=== PATIENT | female | born 1935 | race Caucasian/White ===

== ENCOUNTER 2017-11-03 20:15 | Inpatient (IN) ==
[2017-11-03] MEDS ORDERED: traZODone HCL 50 MG TABLET PO PRN (22:14)
[2017-11-03] MEDS ORDERED: DEXTROSE 31 GM ORAL.SUSP PO PRN (22:14)
[2017-11-03] MEDS ORDERED: ONDANSETRON 4 MG/2 ML VIAL IV PRN (22:14)
[2017-11-03] MEDS ORDERED: ACETAMINOPHEN 325 MG TABLET PO PRN (22:14)
[2017-11-03] MEDS ORDERED: HYDROcodone/APAP 5/325MG TABLET PO PRN (22:14)
[2017-11-03] MEDS ORDERED: DEXTROSE 50% 50 ML VIAL IV PRN (22:14)
[2017-11-03] MEDS: 0.9 % SODIUM CHLORIDE 1,000 ML IV SCH (23:00)
--- NOTE | 2017-11-03 23:19 | Internal Med History&Physical ---
Medical - H&P: HPI Patient information: Note initiated : 11/03/17 at 11:04 pm Service Date, if different from initiated Date: [] Patient: Sharon Lucsa 82 y/o F admitted on 11/03/17 for Femur Fracture . Chief Complaint: fall, femur fracture History of present illness: The patient is an 82-year-old female history of type 2 diabetes, hypertension, aortic stenosis who presents in transfer from an outside hospital with a femur fracture. The history is obtained in speaking with the patient as well as reviewing old records from the transferring hospital as well as from [facility] in [place], as summarized below. Patient has a history of a left total knee arthroplasty done in 2001. She's also had a previously done right total knee arthroplasty several years prior. She done well postop, not have problems with her left knee. This morning the patient got up and started her day, she was walking with her 4 wheeled walker which she usually uses to ambulate at home. She notices she is having trouble getting her left leg to move correctly and it felt numb. She wondered if she might of had a stroke. However she continued to walk on the M with a walker. She showered, and continued her day. This afternoon, while walking around the edge of the bed as she was manipulating the corner, her left leg went move and then she fell to the floor. She has not recall particularly twisting the limb. She's had no antecedent falls recently. She was unable to move the limb and to get up. Her called EMS and she was taken to [facility] in [place]. There she was found to have a distal left femur fracture above her left total knee implant. She is transferred to this facility for orthopedic consultation. Patient had been feeling well otherwise. She does not have a history of dyspnea on exertion or chest symptoms when ambulating at her usual pace, though she does not walk briskly and does use her walker for stability issues. She does not have claudication symptoms. She has no history of congestive heart failure which she is aware nor history of lung disease. As undergone anesthesia for several surgeries in the past, has not had problems with anesthesia except takes her a long time to have the effects of anesthesia were off. Review of records from [facility] showed that she had presented with a non- STEMI, which time she was found to have severe aortic stenosis (she tells me this was June 2017, initially presenting to [facility] in [place]). She also had a focal lesion in the mid right (later characterized as severe and a cardiology consult note) and moderate bifurcation disease of the LAD. She has been evaluated for transcatheter aortic valve replacement and RCA stenting. In reviewing those records, she is noted to be quite frail, to greater than 6 seconds to complete a 5 m walk and is felt she was more symptomatic than she was on during the interview. The patient recalls the visits to [place] and [facility]. She describes being evaluated for surgery and valve replacement, subsequently having recommendation for having the valve replaced about doing surgery (TAVR) and stenting. She then stated that after much thought she decided it was too much trouble and did not wish to have those procedures done. Review of records from [facility] also showed diagnosis of chronic diastolic heart failure in August 2017 (the patient denied have a problem with "fluid rolling up on the lungs" or having been told she had congestive heart failure). Echocardiogram on 08/21/2017 showed ejection fraction of 55% with severe AAS. She also had mild-moderate mitral regurgitation. She currently denies any chest pain/tightness/squeezing. She denies any dyspnea. No lower extremity edema. No fever, chills, headache, sore throat, dyspnea, cough, sputum production, nausea, vomiting, hematemesis, blood in stool , diarrhea, dysuria, focal neurologic symptoms. Medical - H&P: PMH Medical history: Coronary artery disease, status post in STEMI (June 2017 per history) Cardiac cath July 2017 with 99% mid RCA, 70-80% mid LAD and 80-90% diagonal vessel disease Chronic diastolic/valvular heart failure Echocardiogram 08/21/2017 with EF 55%, grade 2 diastolic dysfunction, severe , mild-mod MR Severe aortic stenosis Type 2 diabetes mellitus Hypertension Hyperlipidemia Breast cancer, status post right mastectomy in 1996. Recurrent breast cancer, status post left mastectomy in 2013 Left bundle branch block Reticulocyte is Mild hyponatremia Low back pain Allergic rhinitis Fall with left proximal humerus fracture 2013, treated nonoperatively Surgical history: Status post right total knee arthroplasty 1999 Status post left total knee arthroplasty 2003 Status post right mastectomy 1996, left mastectomy 2013 Status post hysterectomy 1985 Back surgery 1995 Pertinent family history: Patient's mother had diabetes, dementia, breast cancer. Father had colon cancer and stroke. Social history: Patient lives with her who is 91 years of age, provides ADLs for both of them. She stopped smoking in 1973. She does not drink alcohol. Medical - H&P: Meds Home Medications Medication Instructions Recorded Confirmed Type Aspirin [Lauren Chewable Aspirin] 81 mg PO QAM 11/03/17 11/03/17 History Bisoprolol Fumarate 10 mg PO QAM 11/03/17 11/03/17 History Furosemide [Lasix] 40 mg PO QAM 11/03/17 11/03/17 History Insulin Aspart [Novolog Flexpen] 100 unit SQ PRN PRN 11/03/17 11/03/17 History Insulin Detemir [Levemir Flextouch] 100 unit SQ PRN PRN 11/03/17 11/03/17 History Lisinopril [Zestril] 20 mg PO QAM 11/03/17 11/03/17 History Potassium Chloride [Klor-Con 10] 10 meq PO BID 11/03/17 11/03/17 History Rosuvastatin Calcium [Crestor] 40 mg PO DAILY 11/03/17 11/03/17 History Vit B12/Intrinsic Fact/Folate 1 each PO QAM 11/03/17 11/03/17 History [Intrinsi [id number] Tablet] Vitamin D3 400 unit PO QAM 11/03/17 11/03/17 History amLODIPine BESYLATE [Amlodipine 5 mg PO QAM 11/03/17 11/03/17 History Besylate] metFORMIN HCL [Glucophage] 500 mg PO BID 11/03/17 11/03/17 History Allergies Allergy/AdvReac Type Severity Reaction Status Date / Time bimatoprost [From Lumigan] Allergy Unknown Verified 11/03/17 21:41 methocarbamol [From Robaxin] Allergy Hives Verified 11/03/17 21:41 Penicillins Allergy Hives Verified 11/03/17 21:41 Warfarin [From Coumadin] Allergy Itching Verified 11/03/17 21:47 atorvastatin [From Lipitor] AdvReac Redness of Verified 11/03/17 21:41 Skin hydrochlorothiazide AdvReac Muscle Pain Verified 11/03/17 21:41 [From Maxzide] Sulfa (Sulfonamide AdvReac Vomiting Verified 11/03/17 21:41 Antibiotics) Triamterene [From Maxzide] AdvReac Muscle Pain Verified 11/03/17 21:41 Medical - H&P: Exam - Constitutional Exam: GENERAL: Alert, oriented, in no acute distress. Cooperative, appears stated age. HEENT: Atraumatic. PERRL, conjunctiva clear, no scleral icterus. Hearing grossly intact. Oropharynx with moist mucous membranes, no lip or gum lesions, no pharyngeal erythema or exudate. Tongue midline, palate rises symmetrically. NECK: Supple without meningismus, no thyromegaly RESPIRATORY: Breath sounds clear bilaterally without wheezes or rhonchi. Respiratory effort is unlabored. CARDIOVASCULAR: Regular rate and rhythm, 3/6 systolic murmur RUSB, radiates into the carotids bilaterally. 3/6 systolic murmur at the apex. Carotid pulses 1+, no delay upstrokes. JVP is not elevated. No peripheral edema in the right, trace on the left (leg with fracture). GI: Abdomen soft, nontender, no guarding or rebound. Bowel sounds are present. No hepatosplenomegaly. LYMPHATIC: No cervical or supraclavicular lymphadenopathy MUSCULOSKELETAL: Left lower extremity is externally rotated, supported on a low. His tenderness over the medial distal thigh, no ecchymoses. Some edema of the distal thigh. Well-healed surgical scar over both knees. Muscle mass decreased. Strength 5-/5 in the upper and lower extremities. SKIN: Intact, warm, dry. Skin turgor decreased. NEUROLOGIC: Cranial nerves II through XII grossly intact. Sensation intact to light touch bilaterally. PSYCHIATRIC: Alert, oriented x3, normal affect, fairly good insight into condition. Medical - H&P: Reslt - Labs Labs: From [facility]: White count 14.0, hemoglobin 13.3, platelet count 279,000 with 65% neutrophils and 12% lymphocytes on differential. Sodium 134, potassium 3.5, chloride 94, bicarbonate 29, B1 21, creatinine 0.6, glucose 97. Urinalysis shows negative nitrites negative leukocyte esterase. - Impressions Left knee films from outside facility reviewed Displaced distal femur fracture with angulation just above the femoral portion of total knee hardware. Medical - H&P: A/P (1) Femur fracture, left Current visit: Yes Status: Acute (2) Severe aortic stenosis Current visit: Yes Status: Chronic (3) Coronary artery disease Current visit: Yes Status: Chronic (4) Chronic diastolic (congestive) heart failure Current visit: Yes Status: Chronic (5) Type 2 diabetes mellitus Current visit: Yes Status: Chronic (6) Hypertension Current visit: Yes Status: Chronic - Narrative A/P Narrative: 82-year-old female presenting after left leg symptoms and subsequent fall with distal femur fracture. Distal femur fracture. Occurring above the femoral component of her left total knee arthroplasty. Patient was accepted in transfer by Dr. Pavon, either here or one of his partners will see the patient for surgical repair. There does not appear to be antecedent trauma, concerning for possible pathologic fracture due to malignancy with her history of breast cancers. Patient has significant past medical history with severe aortic stenosis and severe coronary stenoses. She's had risk stratification with coronary angiography in July of this year with 99% mid RCA and 70-80% mid LAD lesions. She denies to me a history of chest pain or tightness with her normal activity, though she is not very active at all. In August, as noted she was having dyspnea and some chest symptoms for the past year. She apparently presented at [facility] with a non-STEMI in June 2017. She was evaluated for TAVR as well as coronary stenting but decided not to follow through. Patient would be high risk for surgery. The geriatrics sensitive perioperative risk calculator gives a risk of 2.4% for perioperative AR or cardiac arrest. However given the fairly emergent need for surgery, there really isn't the opportunity for coronary intervention (which would require antiplatelet therapy for several months) prior to going to the OR. Plan: If the patient does proceed to surgery, will need close attention to avoid drastic afterload reduction, and troponin should be trended postoperatively. Coronary artery disease. Both RCA and LAD lesions as noted above, also a diagonal lesion. Denies any current chest symptoms over the last few weeks with her usual exertional status. Plan: For now continue with her medical regimen, including beta alesia and high potency statin. Severe aortic stenosis. Plan: Will need close monitoring to avoid afterload reduction. Chronic diastolic congestive heart failure due to valvular heart disease. We' ll be at risk for pulmonary edema with aggressive fluids. Plan: Judicious fluids, close monitoring. Type 2 diabetes on insulin as well as metformin. Plan: Controlled carbohydrate diet, sliding scale insulin, lower dose Levemir, metformin. Prophylaxis: SCDs CODE STATUS: Patient wishes full code.
[2017-11-04] MEDS: 0.9 % SODIUM CHLORIDE 10 ML SYRINGE IV SCH ×3 (05:32→22:32)
[2017-11-04 06:08] LABS: Mean Cell Volume 87.9 fL (80.0-100.0); Mean Corpuscular HGB Conc 33.3 g/dL (31.0-36.0); Mean Corpuscular Hemoglobin 29.3 pg (26.0-34.0); Platelet Count 212 K/mcL (140-440); RBC 3.42 M/mcL (4.00-5.20)
[2017-11-04 06:21] LABS: ALT/SGPT 13 U/l (0-40); Albumin 3.3 gm/dL (3.2-5.2); Albumin/Globulin Ratio 1.6 (1.0-2.3); Alkaline Phosphatase 42 U/L (39-117); Blood Urea Nitrogen 14 mg/dl (8-23)
[2017-11-04] MEDS: INSULIN LISPRO 1 UNIT/0.01 ML UNIT SQ SCH ×4 (07:11→22:32)
[2017-11-04 07:21] LABS: Estimated Average Glucose(eAG) 146 mg/dL; Hemoglobin A1C 6.7 % HGB (4.0-6.0)
[2017-11-04] MEDS ORDERED: PANTOPRAZOLE 40 MG VIAL IV SCH (07:30)
[2017-11-04 08:29] LABS: Eosinophils % (Manual) 2 % (0-7); Lymphocytes % 24 % (15-49); Monocytes % (Manual) 4 % (1-12); Platelet Estimate NORMAL (NORMAL); RBC Morphology NORMAL (NORMAL); Segmented Neutrophils % 70 % (38-78)
[2017-11-04] MEDS ORDERED: FAMOTIDINE/PF 20 MG/2 ML VIAL IV SCH (09:00)
[2017-11-04] MEDS ORDERED: 0.9 % SODIUM CHLORIDE 250 ML IV SCH (10:15)
--- NOTE | 2017-11-04 10:15 | Internal Med Progress Note ---
Medical - PN: Subj Patient information: Note initiated : 11/04/17 at 10:12 am Service Date, if different from initiated Date: [] Patient: Sharon Lucas 82 y/o F admitted on 11/03/17 for Femur Fracture . Chief Complaint: [] Interval history: 11/03 The patient is an 82-year-old female history of type 2 diabetes, hypertension, aortic stenosis who presents in transfer from an outside hospital with a femur fracture. The history is obtained in speaking with the patient as well as reviewing old records from the transferring hospital as well as from [facility] in [place], as summarized below. Patient has a history of a left total knee arthroplasty done in 2001. She's also had a previously done right total knee arthroplasty several years prior. She done well postop, not have problems with her left knee. This morning the patient got up and started her day, she was walking with her 4 wheeled walker which she usually uses to ambulate at home. She notices she is having trouble getting her left leg to move correctly and it felt numb. She wondered if she might of had a stroke. However she continued to walk on the M with a walker. She showered, and continued her day. This afternoon, while walking around the edge of the bed as she was manipulating the corner, her left leg went move and then she fell to the floor. She has not recall particularly twisting the limb. She's had no antecedent falls recently. She was unable to move the limb and to get up. Her called EMS and she was taken to [facility] in [place]. There she was found to have a distal left femur fracture above her left total knee implant. She is transferred to this facility for orthopedic consultation. Patient had been feeling well otherwise. She does not have a history of dyspnea on exertion or chest symptoms when ambulating at her usual pace, though she does not walk briskly and does use her walker for stability issues. She does not have claudication symptoms. She has no history of congestive heart failure which she is aware nor history of lung disease. As undergone anesthesia for several surgeries in the past, has not had problems with anesthesia except takes her a long time to have the effects of anesthesia were off. Review of records from [facility] showed that she had presented with a non- STEMI, which time she was found to have severe aortic stenosis (she tells me this was June 2017, initially presenting to [facility] in [place]). She also had a focal lesion in the mid right (later characterized as severe and a cardiology consult note) and moderate bifurcation disease of the LAD. She has been evaluated for transcatheter aortic valve replacement and RCA stenting. In reviewing those records, she is noted to be quite frail, to greater than 6 seconds to complete a 5 m walk and is felt she was more symptomatic than she was on during the interview. The patient recalls the visits to [place] and [facility]. She describes being evaluated for surgery and valve replacement, subsequently having recommendation for having the valve replaced about doing surgery (TAVR) and stenting. She then stated that after much thought she decided it was too much trouble and did not wish to have those procedures done. Review of records from [facility] also showed diagnosis of chronic diastolic heart failure in August 2017 (the patient denied have a problem with "fluid rolling up on the lungs" or having been told she had congestive heart failure). Echocardiogram on 08/21/2017 showed ejection fraction of 55% with severe AAS. She also had mild-moderate mitral regurgitation. 11/04 Patient seen and examined. She initially did not want to sign blood consent last evening. Had long discussion with the patient, her granddaughter is also in the room. She did not want to receive blood due to sikhism reasons, though after further discussion of the risks of proceeding to surgery with significant anemia given her right coronary and LAD stenoses, she has consented to receive blood. In discussing with Dr. Almanzar, he estimates one unit of blood has been lost in tissues due to fracture, and one further unit of blood may be lost during surgery. We discussed with the patient nonoperative management which would be 6-8 weeks and knee immobilizer without weightbearing. She does wish to proceed with surgery. Both she and her granddaughter recognize she is at higher risk given her coronary artery disease and aortic stenosis. Did not sleep well last night. No dyspnea. No chest pain. Pain in the leg is controlled. - Constitutional Vitals: Vital Signs Temp Pulse Resp BP Pulse Ox 98.6 F 63 16 132/61 95 11/04/17 06:56 11/04/17 03:10 11/04/17 06:56 11/04/17 06:56 11/04/17 06:56 Period Temp Pulse Resp BP Sys/Aviles Pulse Ox Last 24 Hr 98.0 F-98.8 F 58-63 12-16 130-141/58-68 94-95 Intake and Output 11/03/17 11/04/17 11/04/17 21:59 05:59 13:59 Output Total 475 / 475 Balance -475 / -475 Weight 163 lb Intake & Output: Intake & Output 11/03/17 11/04/17 11/04/17 21:59 05:59 13:59 Output Total 475 / 475 Balance -475 / -475 Weight 163 lb Output: Urine Catheter Amount 475 / 475 Exam: General: Laying in bed, in no distress Chest: Clear, no rales Cardiovascular: Regular with 3/6 systolic murmur is unchanged Abdomen: Soft, nontender Musculoskeletal: Left lower extremity is neurovascularly intact Neuro: Awake, alert, oriented to person, place, situation Medical - PN: Obj Da - Labs CBC & Chem 7: 11/04/17 04:42 11/04/17 04:42 Labs: Abnormal Lab Results 11/04/17 11/04/17 04:42 04:42 WBC 11.1 H RBC 3.42 L Hgb 10.0 L Hct 30.1 L RDW 15.0 H Anion Gap 6.0 L Creatinine 0.5 L Glucose 150 H Hemoglobin A1c 6.7 H Calcium 8.5 L Total Protein 5.4 L Globulin 2.1 L Meds: Medications Acetaminophen (Tylenol) 650 mg PO Q6HP PRN PRN Reason: PAIN/FEVER > 101 Hydrocodone Bitart/Acetaminophen (Kevil 5/325mg) 1 tab PO Q4HP PRN PRN Reason: PAIN LEVEL 3-6 Dextrose (Dextrose 50%) 0 ml IV UD PRN PRN Reason: Hypoglycemia Diagnostic Test (Pha) (Accu-Chek) 1 each FS ACHS KEIKO Last Admin: 11/04/17 07:10 Dose: 1 each Famotidine (Pepcid) 20 mg IV Q12 KEIKO Glucose (Insta-Glucose) 15 gm PO PRN PRN PRN Reason: Hypoglycemia Sodium Chloride (Sodium Chloride 0.9%) 1,000 mls @ 75 mls/hr IV .[id number] KEIKO Last Admin: 11/03/17 23:00 Dose: 75 mls/hr Sodium Chloride (Sodium Chloride 0.9%) 250 mls @ 20 mls/hr IV .[id number] [facility] Stop: 11/04/17 22:44 Insulin Human Lispro (Humalog) 0 unit SQ ACHS KEIKO PRN Reason: Protocol Last Admin: 11/04/17 07:11 Dose: Not Given Morphine Sulfate (Morphine) 4 mg IV Q4HP PRN PRN Reason: PAIN LEVEL > 6 Last Admin: 11/04/17 08:58 Dose: 4 mg Non-Formulary Medication (Bisoprolol Fumarate [Bisoprolol Fumarate]) 10 mg PO QAM [facility] Non-Formulary Medication (Rosuvastatin Calcium [Crestor]) 40 mg PO DAILY [facility] Ondansetron HCl (Zofran) 4 mg IV Q6HP PRN PRN Reason: Nausea And Vomiting Sodium Chloride (Saline Flush) 10 ml IV Q8 [facility] Last Admin: 11/04/17 05:32 Dose: Not Given Trazodone HCl (Desyrel) 25 mg PO HSP PRN PRN Reason: Insomnia - EKG Data -: EKG Reviewed by Myself (SR at 58, LBBB (old by report)) Medical - PN: A/P - Time Spent With Patient Total time spent is greater than 50% in coordination of care (as documented) at patient's floor/unit and/or counseling patient: Greater than 35 minutes (1) Femur fracture, left Status: Acute Current Visit: Yes (2) Severe aortic stenosis Status: Chronic Current Visit: Yes (3) Coronary artery disease Status: Chronic Current Visit: Yes (4) Chronic diastolic (congestive) heart failure Status: Chronic Current Visit: Yes (5) Type 2 diabetes mellitus Status: Chronic Current Visit: Yes (6) Hypertension Status: Chronic Current Visit: Yes - Narrative A/P Narrative: 82-year-old female presenting after left leg symptoms and subsequent fall with distal femur fracture. Distal femur fracture. Occurring above the femoral component of her left total knee arthroplasty. Seen by Dr. Lynn this morning, plans operative repair this afternoon. Discussed her risk factors, including coronary disease and aortic stenosis with him. Patient would like to recover from this as well as possible, immobilizing the knee and allowing possible healing is not really a viable option. Patient realizes that she is at higher operative risk with her coronary disease and aortic stenosis. To help mitigate this, given her acute blood loss anemia we'll transfuse 1 unit of packed cells preoperatively in anticipation of further fall in her hemoglobin. She agrees to transfusion. Plan: Repair as per ortho, CV risk management as outlined. Tend troponin post- operatively Coronary artery disease. Increase his surgical risk, we'll mitigate as best as possible by maintaining adequate hematocrit. Plan: Transfuse 1 unit packed red cells preoperatively, follow hemoglobin, use a liberal transfusion strategy. Continue beta alesia and hypodensity statin. Severe aortic stenosis. Will need close attention to avoid drastic of afterload reduction and drop in blood pressure and coronary perfusion pressure. Plan: Maintain adequate MAP intraoperatively Chronic diastolic heart failure due to valvular heart disease. Currently compensated, chest is clear, neck veins are not distended. Plan: Judicious fluids, close monitoring Type 2 diabetes on insulin as well as metformin. Plan: Controlled carbohydrate diet, sliding scale insulin, lower dose Levemir, hold metformin. Medical - PN: Qual - VTE Deep Vein Thrombosis/Pulmonary Embolism Present on Admission: No
--- NOTE | 2017-11-04 10:53 | Orthopedic History & Physical ---
History of Present Illness Patient information: Note initiated : 11/04/17 at 10:51 am Service Date, if different from initiated Date: [] Patient: Sharon Lucas 82 y/o F admitted on 11/03/17 for Femur Fracture . Chief Complaint: [] HPI: Ms. Lucas is a 82 year old Female presenting today after a fall and injury to the left knee and femur. She continues to have pain in left knee but is otherwise doing okay. She is scheduled for surgery later this afternoon. She denies any numbness/tingling, weakness, fever, N/V, headache, CP, SOB, or any other acute symptoms. Review of Systems Constitutional: as per HPI Past History Past medical history: diabetes, CAD, HTN, bilateral mastectomy, murmur Medications and Allergies Home Medications Medication Instructions Recorded Confirmed Type Aspirin [Lauren Chewable Aspirin] 81 mg PO QAM 11/03/17 11/03/17 History Bisoprolol Fumarate 10 mg PO QAM 11/03/17 11/03/17 History Furosemide [Lasix] 40 mg PO QAM 11/03/17 11/03/17 History Insulin Aspart [Novolog Flexpen] 100 unit SQ PRN PRN 11/03/17 11/03/17 History Insulin Detemir [Levemir Flextouch] 100 unit SQ PRN PRN 11/03/17 11/03/17 History Lisinopril [Zestril] 20 mg PO QAM 11/03/17 11/03/17 History Potassium Chloride [Klor-Con 10] 10 meq PO BID 11/03/17 11/03/17 History Rosuvastatin Calcium [Crestor] 40 mg PO DAILY 11/03/17 11/03/17 History Vit B12/Intrinsic Fact/Folate 1 each PO QAM 11/03/17 11/03/17 History [Intrinsi [id number] Tablet] Vitamin D3 400 unit PO QAM 11/03/17 11/03/17 History amLODIPine BESYLATE [Amlodipine 5 mg PO QAM 11/03/17 11/03/17 History Besylate] metFORMIN HCL [Glucophage] 500 mg PO BID 11/03/17 11/03/17 History Allergies Allergy/AdvReac Type Severity Reaction Status Date / Time methocarbamol [From Robaxin] Allergy Mild Hives Verified 11/04/17 07:01 Penicillins Allergy Mild Hives Verified 11/04/17 07:01 bimatoprost [From Lumigan] Allergy Unknown Unknown Verified 11/04/17 07:01 atorvastatin [From Lipitor] AdvReac Mild Redness of Verified 11/04/17 07:01 Skin hydrochlorothiazide AdvReac Mild Muscle Pain Verified 11/04/17 07:01 [From Maxzide] Sulfa (Sulfonamide AdvReac Mild Vomiting Verified 11/04/17 07:01 Antibiotics) Triamterene [From Maxzide] AdvReac Mild Muscle Pain Verified 11/04/17 07:01 Warfarin [From Coumadin] AdvReac Mild Itching Verified 11/04/17 07:01 Physical Examination - Knee left Appearance: effusion, other (patients knee is swollen, ecchymotic, and painful to palpation, with large effusion. ROM limited to pain, NVI in entire LLE. ) Results - Labs Result Diagrams: 11/04/17 04:42 11/04/17 04:42 Labs: Abnormal lab results 11/04/17 11/04/17 Range/Units 04:42 04:42 WBC 11.1 H (4.5-11.0) K/mcL RBC 3.42 L (4.00-5.20) M/mcL Hgb 10.0 L (12.0-15.0) g/dL Hct 30.1 L (36.0-48.0) % RDW 15.0 H (11.5-14.5) % Anion Gap 6.0 L (8-16) Creatinine 0.5 L (0.6-1.1) mg/dl Glucose 150 H (70-105) mg/dL Hemoglobin A1c 6.7 H (4.0-6.0) % HGB Calcium 8.5 L (8.6-10.4) mg/dl Total Protein 5.4 L (5.9-8.4) gm/dL Globulin 2.1 L (2.2-3.7) gm/dL H & H 11/04/17 Range/Units 04:42 Hgb 10.0 L (12.0-15.0) g/dL Hct 30.1 L (36.0-48.0) % Coagulation 11/04/17 Range/Units 04:42 INR 1.1 (0.9-1.1) All other labs normal. Assessment and Plan (1) Femur fracture, left Patient has elected to move forward with surgery after discussing risks, benefits, and alternatives. We will plan on an open reduction internal fixation of a left distal femur fracture. She is a full code. Status: Acute
[2017-11-04] MEDS ORDERED: TRANEXAMIC ACID 1,000 MG/10 ML VIAL IV ONE ×3 (10:56→18:38)
[2017-11-04] MEDS: 0.9 % SODIUM CHLORIDE 1,000 ML IV SCH ×2 (12:05→23:31)
[2017-11-04] MEDS ORDERED: ceFAZolin 1 GM VIAL ONE (15:21)
[2017-11-04] MEDS ORDERED: ceFAZolin 1 GM VIAL IV SCH ×2 (15:30→18:00)
[2017-11-04] MEDS ORDERED: LIDOCAINE HCL/PF 100 MG/5 ML SYRINGE IV ONE (15:50)
[2017-11-04] MEDS ORDERED: DEXAMETHASONE 10 MG/ML VIAL IV ONE (15:50)
[2017-11-04] MEDS ORDERED: MIDAZOLAM 2 MG/2 ML VIAL IV ONE (15:50)
[2017-11-04] MEDS ORDERED: fentaNYL 100 MCG/2 ML VIAL IV ONE (15:50)
[2017-11-04] MEDS ORDERED: KETAMINE 100 MG/ML ML IV ONE (15:50)
[2017-11-04] MEDS ORDERED: ONDANSETRON 4 MG/2 ML VIAL IV ONE (15:50)
[2017-11-04] MEDS ORDERED: PROPOFOL 200 MG/20 ML VIAL IV ONE (15:50)
[2017-11-04] MEDS ORDERED: MEPERIDINE 25 MG/ML SYRINGE IV PRN (16:52)
[2017-11-04] MEDS ORDERED: FLUMAZENIL 0.1 MG/ML ML IV PRN (16:52)
[2017-11-04] MEDS ORDERED: fentaNYL 100 MCG/2 ML VIAL IV PRN (16:52)
[2017-11-04] MEDS ORDERED: ACETAMINOPHEN 1,000 MG/100 ML BOTTLE IV ONE (16:52)
[2017-11-04] MEDS ORDERED: PROMETHAZINE 25 MG/ML VIAL IV PRN (16:52)
[2017-11-04] MEDS ORDERED: IPRATROPIUM/ALBUTEROL 3 ML AMPUL.NEB NEB PRN (16:52)
[2017-11-04] MEDS ORDERED: NALOXONE HCL 0.4 MG/ML VIAL IV PRN (16:52)
[2017-11-04] MEDS ORDERED: ONDANSETRON 4 MG/2 ML VIAL IV PRN ×3 (16:52→20:20)
[2017-11-04] MEDS ORDERED: LACTATED RINGERS 1,000 ML IV SCH (17:00)
[2017-11-04] MEDS ORDERED: 0.45 % SODIUM CHLORIDE 1,000 ML IV SCH (18:00)
[2017-11-04] MEDS ORDERED: POLYETHYLENE GLYCOL 3350 17 GM PACKET PO PRN ×2 (18:00→20:20)
[2017-11-04] MEDS ORDERED: MAGNESIUM HYDROXIDE 30 ML ORAL.SUSP PO PRN ×2 (18:00→20:20)
[2017-11-04] MEDS ORDERED: BENZOCAINE/MENTHOL 1 LOZENGE PO PRN ×2 (18:00→20:20)
[2017-11-04] MEDS ORDERED: TEMAZEPAM 15 MG CAPSULE PO PRN (18:00)
[2017-11-04] MEDS ORDERED: FLEETS ADULT ENEMA PR PRN ×2 (18:00→20:20)
[2017-11-04] MEDS ORDERED: BISACODYL 10 MG SUPP.RECT PR PRN ×2 (18:00→20:20)
--- NOTE | 2017-11-04 18:00 | Brief Operative Note ---
Date of procedure: 11/04/17 Pre-op diagnosis: left femur supracodylar femur fx Post-op diagnosis: same Procedure: left femur supracodylar femur fx orif med and lat Grafts/Implants: Yes Anesthesia: GETA Complications: none Surgeon: Sam Lynn Rectangular Tank Cooper: Chaparro Malone Estimated blood loss (cc): 200 Specimens Removed/Pathology: none sent Condition: stable Disposition: PACU
--- NOTE | 2017-11-04 19:04 | XRay Report ---
CLINICAL INFORMATION: ORIF distal femoral fracture COMPARISON: Preoperative films unavailable FINDINGS: Left total knee prosthesis remains in anatomic alignment without loosening or infection. Oblique fracture of the distal femoral diaphysis, adjacent to the femoral component of the prostheses, has been reduced to anatomic alignment and transfixed by two plates and multiple screws. Mild soft tissue swelling noted IMPRESSION: ORIF - oblique fracture of the distal femoral diaphysis is now anatomically aligned. Interpreted and Authenticated by: Jono Pepper 11/04/17
[2017-11-04] MEDS ORDERED: traZODone HCL 50 MG TABLET PO PRN (20:20)
[2017-11-04] MEDS ORDERED: ACETAMINOPHEN 325 MG TABLET PO PRN (20:20)
[2017-11-04] MEDS ORDERED: DEXTROSE 31 GM ORAL.SUSP PO PRN (20:20)
[2017-11-04] MEDS ORDERED: DEXTROSE 50% 50 ML VIAL IV PRN (20:20)
[2017-11-04] MEDS ORDERED: metFORMIN 500 MG TABLET PO SCH (21:00)
[2017-11-04] MEDS ORDERED: DOCUSATE SODIUM 100 MG CAPSULE PO SCH (21:00)
[2017-11-04] MEDS ORDERED: SENNOSIDES 1 TABLET PO SCH (21:00)
[2017-11-04] MEDS ORDERED: POTASSIUM CHLORIDE 10 MEQ TABLET PO SCH (21:00)
[2017-11-04] MEDS ORDERED: SIMVASTATIN 40 MG TABLET PO SCH (21:00)
[2017-11-04] MEDS ORDERED: ASPIRIN 325 MG ENTERIC COATED TABLET PO SCH (21:00)
[2017-11-04] MEDS ORDERED: 0.9 % SODIUM CHLORIDE 10 ML SYRINGE IV SCH (22:00)
[2017-11-04] MEDS: ASPIRIN 325 MG ENTERIC COATED TABLET PO SCH (22:31)
[2017-11-04] MEDS: DOCUSATE SODIUM 100 MG CAPSULE PO SCH (22:31)
[2017-11-04] MEDS: SIMVASTATIN 40 MG TABLET PO SCH (22:31)
[2017-11-04] MEDS: SENNOSIDES 1 TABLET PO SCH (22:31)
[2017-11-04] MEDS: INSULIN GLARGINE, HUMAN 1 UNIT/0.01 ML SQ SCH (22:32)
[2017-11-04] MEDS: ceFAZolin 1 GM VIAL IV SCH (23:30)
[2017-11-05] MEDS: 0.9 % SODIUM CHLORIDE 10 ML SYRINGE IV SCH ×3 (05:41→22:27)
[2017-11-05 06:17] LABS: Blood Urea Nitrogen 14 mg/dl (8-23)
[2017-11-05] MEDS: INSULIN LISPRO 1 UNIT/0.01 ML UNIT SQ SCH ×4 (08:00→21:56)
[2017-11-05] MEDS: PANTOPRAZOLE 40 MG VIAL IV SCH (08:05)
[2017-11-05] MEDS: ceFAZolin 1 GM VIAL IV SCH (08:06)
[2017-11-05] MEDS ORDERED: FOLATE PO SCH (09:00)
[2017-11-05] MEDS ORDERED: [UNRECOGNIZED DRUG - OTHER] PO SCH (09:00)
[2017-11-05] MEDS ORDERED: INTRINSIC FACT PO SCH (09:00)
[2017-11-05] MEDS ORDERED: BISOPROLOL 5 MG TABLET PO SCH (09:00)
[2017-11-05] MEDS ORDERED: VIT B12 PO SCH (09:00)
[2017-11-05] MEDS ORDERED: amLODIPine 10 MG TABLET PO SCH (09:00)
[2017-11-05] MEDS ORDERED: VITAMIN D3 400 UNIT TABLET PO SCH (09:00)
[2017-11-05] MEDS ORDERED: FUROSEMIDE 40 MG TABLET PO SCH (09:00)
[2017-11-05] MEDS ORDERED: LISINOPRIL 20 MG TABLET PO SCH (09:00)
--- NOTE | 2017-11-05 09:08 | Operative Note ---
DATE OF OPERATION: 11/04/2017 PREOPERATIVE DIAGNOSIS: Left supracondylar femur fracture, displaced with severe osteopenia. POSTOPERATIVE DIAGNOSIS: Left supracondylar femur fracture, displaced with severe osteopenia. PROCEDURE: Open reduction and internal fixation of a supracondylar femur fracture with a supracondylar plate from Olu as well as a 3.5 plate medially. SURGEON: Sam Lynn MD SUPERVISOR COSTUMING: Moreno Nixon PA-C ANESTHESIA: General LMA. COMPLICATIONS: None. ESTIMATED BLOOD LOSS: About 200 mL DESCRIPTION OF PROCEDURE: The patient was brought to the operating room and put to sleep with general LMA anesthesia. Once asleep, the patient had the left leg sterilely prepped and draped in the usual sterile fashion. Once this was done, we then took images of the knee, performed a reduction and then used a bump. Once this was done, I then placed a supracondylar plate through an incision over the tibial tubercle and extended this to the lateral epicondyle. This was passed through the IT band and a separate 2 inch incision above was made to dissect down through the fascial layer. This was positioned on the bone. We then placed one screw distally, one locking screw centrally and then one compression screw proximally. This seemed to bring the plate over and the fracture aligned well. The distal fragment was still placed medially and we placed a more distal screw. This brought the fragment over. I then filled the nine holes above the fracture with locking screws and then the distal five screws were locked all locking in the distal fragment. Once these were all locked, images confirmed excellent reduction on AP and lateral views. I then placed a plate medially. This was a 9-hole plate. These screws were both compressive and locking screws. This was a buttress plate medially just for support. This seemed to fit very well. The patient tolerated this well without complication. I irrigated, closed the fascial layer with a Stratafix #1 x2 and then closed the skin with 2-0 Vicryl and lani superficially, both medially and laterally. Sterile bandage was applied. A knee ranger reapplied as well. RBH:celio Job ID: [id number] Doc ID: [id number] Sam Lynn MD
[2017-11-05] MEDS: LISINOPRIL 20 MG TABLET PO SCH (10:22)
[2017-11-05] MEDS: POTASSIUM CHLORIDE 10 MEQ TABLET PO SCH ×2 (10:22→17:59)
[2017-11-05] MEDS: amLODIPine 5 MG TABLET PO SCH (10:23)
[2017-11-05] MEDS: FUROSEMIDE 40 MG TABLET PO SCH (10:23)
[2017-11-05] MEDS: ASPIRIN 325 MG ENTERIC COATED TABLET PO SCH ×2 (10:23→21:54)
[2017-11-05] MEDS: DOCUSATE SODIUM 100 MG CAPSULE PO SCH ×2 (10:23→21:54)
[2017-11-05] MEDS: BISOPROLOL 5 MG TABLET PO SCH (10:24)
[2017-11-05] MEDS ORDERED: SIMETHICONE 80 MG TAB.CHEW CHEWED PRN (12:52)
[2017-11-05] MEDS ORDERED: CALCIUM CARBONATE 500 MG TAB.CHEW CHEWED PRN (12:53)
--- NOTE | 2017-11-05 14:08 | Internal Med Progress Note ---
Medical - PN: Subj Patient information: Note initiated : 11/05/17 at 2:05 pm Service Date, if different from initiated Date: [] Patient: Sharon Lucas 82 y/o F admitted on 11/03/17 for Left Femur Fracture . Chief Complaint: f/u hip fracture Interval history: 11/03 The patient is an 82-year-old female history of type 2 diabetes, hypertension, aortic stenosis who presents in transfer from an outside hospital with a femur fracture. The history is obtained in speaking with the patient as well as reviewing old records from the transferring hospital as well as from [facility] in [place], as summarized below. Patient has a history of a left total knee arthroplasty done in 2001. She's also had a previously done right total knee arthroplasty several years prior. She done well postop, not have problems with her left knee. This morning the patient got up and started her day, she was walking with her 4 wheeled walker which she usually uses to ambulate at home. She notices she is having trouble getting her left leg to move correctly and it felt numb. She wondered if she might of had a stroke. However she continued to walk on the M with a walker. She showered, and continued her day. This afternoon, while walking around the edge of the bed as she was manipulating the corner, her left leg went move and then she fell to the floor. She has not recall particularly twisting the limb. She's had no antecedent falls recently. She was unable to move the limb and to get up. Her called EMS and she was taken to [facility] in [place]. There she was found to have a distal left femur fracture above her left total knee implant. She is transferred to this facility for orthopedic consultation. Patient had been feeling well otherwise. She does not have a history of dyspnea on exertion or chest symptoms when ambulating at her usual pace, though she does not walk briskly and does use her walker for stability issues. She does not have claudication symptoms. She has no history of congestive heart failure which she is aware nor history of lung disease. As undergone anesthesia for several surgeries in the past, has not had problems with anesthesia except takes her a long time to have the effects of anesthesia were off. Review of records from [facility] showed that she had presented with a non- STEMI, which time she was found to have severe aortic stenosis (she tells me this was June 2017, initially presenting to [facility] in [place]). She also had a focal lesion in the mid right (later characterized as severe and a cardiology consult note) and moderate bifurcation disease of the LAD. She has been evaluated for transcatheter aortic valve replacement and RCA stenting. In reviewing those records, she is noted to be quite frail, to greater than 6 seconds to complete a 5 m walk and is felt she was more symptomatic than she was on during the interview. The patient recalls the visits to [place] and [facility]. She describes being evaluated for surgery and valve replacement, subsequently having recommendation for having the valve replaced about doing surgery (TAVR) and stenting. She then stated that after much thought she decided it was too much trouble and did not wish to have those procedures done. Review of records from [facility] also showed diagnosis of chronic diastolic heart failure in August 2017 (the patient denied have a problem with "fluid rolling up on the lungs" or having been told she had congestive heart failure). Echocardiogram on 08/21/2017 showed ejection fraction of 55% with severe AAS. She also had mild-moderate mitral regurgitation. 11/04 Patient seen and examined. She initially did not want to sign blood consent last evening. Had long discussion with the patient, her granddaughter is also in the room. She did not want to receive blood due to adventist reasons, though after further discussion of the risks of proceeding to surgery with significant anemia given her right coronary and LAD stenoses, she has consented to receive blood. In discussing with Dr. Almanzar, he estimates one unit of blood has been lost in tissues due to fracture, and one further unit of blood may be lost during surgery. We discussed with the patient nonoperative management which would be 6-8 weeks and knee immobilizer without weightbearing. She does wish to proceed with surgery. Both she and her granddaughter recognize she is at higher risk given her coronary artery disease and aortic stenosis. Did not sleep well last night. No dyspnea. No chest pain. Pain in the leg is controlled. 11/05 Went through surgery yesterday without any problems, now status post ORIF of distal femur fracture. Postoperative troponins were all below the limit of detection on 2 occasions. Currently no chest pain, no dyspnea. Little reluctant to start working with physical therapy, encourage the patient start mobilizing. - Constitutional Vitals: Vital Signs Temp Pulse Resp BP Pulse Ox 98.9 F 73 20 132/70 92 11/05/17 11:20 11/05/17 11:20 11/05/17 11:20 11/05/17 11:20 11/05/17 11:20 Period Temp Pulse Resp BP Sys/Aviles Pulse Ox Last 24 Hr 97.6 F-98.9 F 63-80 12-20 110-170/44-80 2-100 Intake and Output 11/05/17 11/05/17 11/05/17 05:59 13:59 21:59 Intake Total 804 / 804 1720 / 1720 Output Total 800 / 800 Balance 4 / 4 1720 / 1720 Intake & Output: Intake & Output 11/05/17 11/05/17 11/05/17 05:59 13:59 21:59 Intake Total 804 / 804 1720 / 1720 Output Total 800 / 800 Balance 4 / 4 1720 / 1720 Intake: IV 304 / 304 100 / 100 Oral 500 / 500 1620 / 1620 Output: Urine Catheter Amount 800 / 800 Other: Meal Lunch Percent of Meal Consumed 75% Feeding Ability Independent Exam: General: In no acute distress Chest: Clear Cardiovascular: Regular with 3/6 systolic murmurs, unchanged Abdomen: Soft, nontender Musculoskeletal: Limbs neurovascularly intact Neuro: Alert, oriented 3, nonfocal Medical - PN: Obj Da - Labs CBC & Chem 7: 11/05/17 04:28 11/05/17 04:28 Labs: Abnormal Lab Results 11/05/17 11/05/17 11/04/17 04:28 04:28 04:42 WBC RBC Hgb 10.1 L Hct 30.2 L RDW Carbon Dioxide 20 L Anion Gap 6.0 L Creatinine 0.5 L Glucose 254 H 150 H Hemoglobin A1c 6.7 H Calcium 8.4 L 8.5 L Total Protein 5.4 L Globulin 2.1 L 11/04/17 04:42 WBC 11.1 H RBC 3.42 L Hgb 10.0 L Hct 30.1 L RDW 15.0 H Carbon Dioxide Anion Gap Creatinine Glucose Hemoglobin A1c Calcium Total Protein Globulin Meds: Medications Acetaminophen (Tylenol) 650 mg PO Q6HP PRN PRN Reason: PAIN/FEVER > 101 Hydrocodone Bitart/Acetaminophen (Bruneau 5/325mg) 1 tab PO Q4HP PRN PRN Reason: PAIN LEVEL 3-6 Amlodipine Besylate (Norvasc) 5 mg PO DAILY [facility] Last Admin: 11/05/17 10:23 Dose: 5 mg Aspirin (Ecotrin) 325 mg PO BID [facility] Last Admin: 11/05/17 10:23 Dose: 325 mg Bisacodyl (Dulcolax) 10 mg WV Q2-3DAYS PRN PRN Reason: Constipation Bisoprolol Fumarate (Zebeta) 10 mg PO DAILY [facility] Last Admin: 11/05/17 10:24 Dose: 10 mg Calcium Carbonate/Glycine (Tums) 500 mg CHEWED Q4HP PRN PRN Reason: Dyspepsia Dextrose (Dextrose 50%) 0 ml IV UD PRN PRN Reason: Hypoglycemia Diagnostic Test (Pha) (Accu-Chek) 1 each FS ACHS [facility] Last Admin: 11/05/17 11:30 Dose: 1 each Docusate Sodium (Colace) 100 mg PO BID [facility] Last Admin: 11/05/17 10:23 Dose: 100 mg Furosemide (Lasix) 40 mg PO QAM [facility] Last Admin: 11/05/17 10:23 Dose: 40 mg Glucose (Insta-Glucose) 15 gm PO PRN PRN PRN Reason: Hypoglycemia Insulin Glargine (Lantus) 10 unit SQ HS [facility] Last Admin: 11/04/17 22:32 Dose: 10 unit Insulin Human Lispro (Humalog) 0 unit SQ [facility] PRN Reason: Protocol Last Admin: 11/05/17 11:39 Dose: 10 unit [facility]inopril [facility]estril) [facility] Admin: 11/05/17 10:22 Dose: 20 mg Magnesium Hydroxide (Milk Of Magnesia) 30 ml PO BIDP PRN PRN Reason: Constipation Last Admin: 11/05/17 12:54 Dose: 30 ml Morphine Sulfate (Morphine) 4 mg IV Q4HP PRN PRN Reason: PAIN LEVEL > 6 Ondansetron HCl (Zofran) 4 mg IV Q4HP PRN PRN Reason: Nausea And Vomiting Pantoprazole Sodium (Protonix) 40 mg IV QAMAC [facility] Last Admin: 11/05/17 08:05 Dose: 40 mg Polyethylene Glycol (Miralax) 17 gm PO DAILYP PRN PRN Reason: Constipation Potassium Chloride (Kdur) 10 meq PO BIDCC [facility] Last Admin: 11/05/17 10:22 Dose: 10 meq Senna (Senokot) 2 tab PO HS [facility] Last Admin: 11/04/17 22:31 Dose: 2 tab Simethicone (Mylicon) 80 mg CHEWED QIDP PRN PRN Reason: Dyspepsia Simvastatin (Zocor) 40 mg PO HS [facility] Last Admin: 11/04/17 22:31 Dose: 40 mg Sodium Biphosphate/Sodium Phosphate (Fleets Adult) 1 dose WV Q3-4DAYS PRN PRN Reason: Constipation Sodium Chloride (Saline Flush) 10 ml IV Q8 [facility] Last Admin: 11/05/17 05:41 Dose: Not Given Throat Lozenges (Cepacol) 1 lozenge PO PRN PRN PRN Reason: Sore Throat Trazodone HCl (Desyrel) 25 mg PO HSP PRN PRN Reason: Insomnia - Impressions Knee X-ray, reviewed IMPRESSION: ORIF - oblique fracture of the distal femoral diaphysis is now anatomically aligned. Medical - PN: A/P - Time Spent With Patient Total time spent is greater than 50% in coordination of care (as documented) at patient's floor/unit and/or counseling patient: Greater than 35 minutes (1) Femur fracture, left Status: Acute Current Visit: Yes (2) Severe aortic stenosis Status: Chronic Current Visit: Yes (3) Coronary artery disease Status: Chronic Current Visit: Yes (4) Chronic diastolic (congestive) heart failure Status: Chronic Current Visit: Yes (5) Type 2 diabetes mellitus Status: Chronic Current Visit: Yes (6) Hypertension Status: Chronic Current Visit: Yes - Narrative A/P Narrative: 82-year-old female presenting after left leg symptoms and subsequent fall with distal femur fracture. Distal femur fracture. POD#1, s/p ORIF. Tolerated procedure well, no evidence of ACS on post-op troponins. Hb stable at 10.1 (from 1 unit PRBC pre-op to account for intra-op blood loss) Plan: Continue w/ therapies, discharge planning Coronary artery disease. Quiescent. Troponins <0.01 post-op, no anginal symptoms. Plan: Continue medical management, follow Hb. Severe aortic stenosis. Tolerated anesthesia well. Plan: Saline lock, monitor for evidence of pulmonary edema. Chronic diastolic heart failure due to valvular heart disease. Currently compensated. Plan: Monitor Type 2 diabetes on insulin as well as metformin. Plan: Controlled carbohydrate diet, sliding scale insulin, lower dose Levemir, hold metformin. Medical - PN: Qual - VTE Deep Vein Thrombosis/Pulmonary Embolism Present on Admission: No
--- NOTE | 2017-11-05 18:04 | Orthopedic Progress Note ---
Subjective Patient information: Note initiated : 11/05/17 at 6:03 pm Service Date, if different from initiated Date: [] Patient: Sharon Lucas 82 y/o F admitted on 11/03/17 for Left Femur Fracture . Chief Complaint: [alert and pain is 4-5 but is eating well] Objective Vital signs: Vital Signs Temp Pulse Pulse Pulse Resp BP Pulse Ox 11/05/17 15:58 98.2 F 120/68 11/05/17 15:39 98.6 F 20 133/65 93 11/05/17 14:00 74 96 11/05/17 11:20 98.9 F 73 20 132/70 92 11/05/17 10:00 92 11/05/17 08:00 73 20 92 11/05/17 07:27 98.6 F 72 16 144/72 94 11/05/17 05:59 93 11/05/17 04:33 98.3 F 67 16 145/67 93 11/05/17 02:49 94 11/04/17 23:30 66 14 134/72 96 11/04/17 23:15 98.3 F 67 12 137/71 96 11/04/17 23:06 66 15 135/70 96 11/04/17 23:00 98.3 F 70 16 138/75 97 11/04/17 22:45 65 15 150/73 11/04/17 22:30 73 15 139/62 98 11/04/17 22:15 71 15 139/62 96 11/04/17 22:03 97 11/04/17 22:00 67 15 125/80 96 11/04/17 21:45 68 15 125/69 93 11/04/17 21:15 71 15 130/68 11/04/17 21:00 80 15 133/71 11/04/17 20:45 71 15 128/69 98 11/04/17 20:30 73 15 148/72 98 11/04/17 20:15 67 15 146/72 2 L 11/04/17 20:00 64 14 149/72 100 11/04/17 19:45 70 15 153/66 98 11/04/17 19:30 71 13 170/69 11/04/17 19:15 63 12 157/69 98 11/04/17 19:00 69 12 155/68 95 11/04/17 18:55 98.8 F 65 12 146/71 94 11/04/17 18:40 97.6 F 74 71 67 16 156/61 98 11/04/17 18:20 97.6 F 74 70 67 16 156/61 98 11/04/17 18:05 97.6 F 74 71 63 16 153/60 100 Intake and Output 11/05/17 11/05/17 11/05/17 05:59 13:59 21:59 Intake Total 804 / 804 1720 / 1720 1000 / 1000 Output Total 800 / 800 Balance 4 / 4 1720 / 1720 1000 / 1000 Intake: IV 304 / 304 100 / 100 1000 / 1000 Sodium Chloride 0.9% 1,000 ml @ 1000 / 1000 75 mls/hr IV .[id number] Rx#: [id number] Oral 500 / 500 1620 / 1620 Output: Urine Catheter Amount 800 / 800 Other: Meal Lunch Percent of Meal Consumed 75% Feeding Ability Independent Intake & Output: Intake & Output 11/05/17 11/05/17 11/05/17 05:59 13:59 21:59 Intake Total 804 / 804 1720 / 1720 1000 / 1000 Output Total 800 / 800 Balance 4 / 4 1720 / 1720 1000 / 1000 Intake: IV 304 / 304 100 / 100 1000 / 1000 Sodium Chloride 0.9% 1,000 ml @ 1000 / 1000 75 mls/hr IV .[id number] [facility] Rx#: [id number] Oral 500 / 500 1620 / 1620 Output: Urine Catheter Amount 800 / 800 Other: Meal Lunch Percent of Meal Consumed 75% Feeding Ability Independent Incision: Yes healing Incision clean and dry: Yes Dressing: Yes clean Weight bearing status: non Neurological exam IM: Yes oriented X3, Yes neurovascular intact Extremities exam IM: Yes Foot pink and warm (will need snf for a few weeks) - Labs CBC & BMP: 11/05/17 04:28 11/05/17 04:28 Labs: Orthopedic Labs 11/05/17 11/04/17 04:28 04:42 PT 14.3 14.4 INR 1.1 1.1 APTT 11/05/17 11/04/17 04:28 04:42 Hgb 10.1 L 10.0 L Hct 30.2 L 30.1 L
[2017-11-05] MEDS: 0.9 % SODIUM CHLORIDE 1,000 ML IV SCH (19:45)
[2017-11-05] MEDS: SIMVASTATIN 40 MG TABLET PO SCH (21:53)
[2017-11-05] MEDS: HYDROcodone/APAP 5/325MG TABLET PO PRN (21:54)
[2017-11-05] MEDS: SENNOSIDES 1 TABLET PO SCH (21:55)
[2017-11-05] MEDS: INSULIN GLARGINE, HUMAN 1 UNIT/0.01 ML SQ SCH (21:55)
[2017-11-06] MEDS: HYDROcodone/APAP 5/325MG TABLET PO PRN ×3 (04:52→13:19)
[2017-11-06] MEDS: 0.9 % SODIUM CHLORIDE 10 ML SYRINGE IV SCH ×2 (04:52→14:30)
[2017-11-06] MEDS: PANTOPRAZOLE 40 MG VIAL IV SCH (07:22)
[2017-11-06] MEDS: amLODIPine 5 MG TABLET PO SCH (08:06)
[2017-11-06] MEDS: FUROSEMIDE 40 MG TABLET PO SCH (08:06)
[2017-11-06] MEDS: BISOPROLOL 5 MG TABLET PO SCH (08:06)
[2017-11-06] MEDS: LISINOPRIL 20 MG TABLET PO SCH (08:06)
[2017-11-06] MEDS: INSULIN LISPRO 1 UNIT/0.01 ML UNIT SQ SCH ×2 (08:07→12:26)
[2017-11-06] MEDS: POTASSIUM CHLORIDE 10 MEQ TABLET PO SCH (08:07)
[2017-11-06] MEDS: DOCUSATE SODIUM 100 MG CAPSULE PO SCH (08:07)
--- NOTE | 2017-11-06 08:14 | Discharge Summary ---
Ortho Discharge - TSA - Patient Instructions Diet: Regular Diet Activity: activity as tolerated, weight bearing as tolerated Total Shoulder Protocol: Leave immobilizer in place except for bathing and ROM. Abduction pillow. Continue to wear sling until seen by physician. Codman Pendulum : These exercises use momentum produced by your body to move your shoulder joint. Bend your knees and shift your weight to your front leg, then back, allowing your arm to swing in the same directions. Using the same technique, alternately shift your weight between your right and left legs, allowing your arm to swing from side to side. These exercises are also performed in counterclockwise and clockwise circular motions. Typically these exercises are performed several times per day, for a set number repetitions or minutes, such as 20 times in a row or 5 minutes at a time. Dressing Care: Nevilleel Ag - leave on for 5 days - Follow Up Plan Disposition: Xfer SNF Prognosis: Good Rehab Potential: Good I certify that the patient requires SNF services: Yes Overall status at discharge: patient is back to baseline - Orders For Discharge Prescriptions: Aspirin [Ecotrin] 325 mg PO BID #30 tab.ec HYDROcodone/APAP 5/325MG [Tyler 5-325Mg] 1 tab PO Q4HP PRN #60 tablet PRN Reason: Pain Level 3-6 Additional Discharge Orders: Physical Therapy at Discharge - TKA Location: Determined By Patient Walker Location: Determined By Patient
[2017-11-06] MEDS: ASPIRIN 325 MG ENTERIC COATED TABLET PO SCH (08:19)
--- NOTE | 2017-11-06 13:45 | Discharge Summary ---
Medical - DS: Prov Patient information: Note initiated : 11/06/17 at 1:43 pm Service Date, if different from initiated Date: [] Patient: Sharon Lucas 82 y/o F admitted on 11/03/17 for Left Femur Fracture . Date of admission: 11/03/17 21:07 Discharge date: 11/06/17 Primary care physician: Shahid Smith Attending physician on admission: Kathrine Topete Consults: 11/03/17 23:03 Consult to Physician [CONS] Routine Comment: Consulting Provider: Kathrine Topete Reason For Exam: Physician to Consult 11/03/17 23:04 Consult to Physician [CONS] Routine Comment: Consulting Provider: Nael Pavon Reason For Exam: Physician to Consult Attending physician on discharge: Kathrine Topete Medical - DS: Meds - Discharge Medications Prescriptions: Aspirin [Ecotrin] 325 mg PO BID #30 tab.ec HYDROcodone/APAP 5/325MG [Atlas 5-325Mg] 1 tab PO Q4HP PRN #60 tab PRN Reason: Pain Level 3-6 Active and Home Medications: Home Medications Bisoprolol Fumarate 10 mg PO QAM 11/03/17 [History Confirmed 11/03/17 Last Taken 11/03/17 08:00] Furosemide [Lasix] 40 mg PO QAM 11/03/17 [History Confirmed 11/03/17 Last Taken 11/03/17 06:00] Insulin Aspart [Novolog Flexpen] 100 unit SQ PRN PRN 11/03/17 [History Confirmed 11/03/17 Last Taken 11/03/17 17:00] Insulin Detemir [Levemir Flextouch] 100 unit SQ PRN PRN 11/03/17 [History Confirmed 11/03/17 Last Taken 11/03/17 17:00] Lisinopril [Zestril] 20 mg PO QAM 11/03/17 [History Confirmed 11/03/17 Last Taken 11/03/17 08:00] Potassium Chloride [Klor-Con 10] 10 meq PO BID 11/03/17 [History Confirmed 11/03 Last Taken 11/03/17 08:00] Rosuvastatin Calcium [Crestor] 40 mg PO DAILY 11/03/17 [History Confirmed Last Taken 11/03/17 17:00] Vit B12/Intrinsic Fact/Folate [Intrinsi V53-[id number] Tablet] 1 each PO QAM [History Confirmed 11/03/17 Last Taken 11/03/17 08:00] Vitamin D3 400 unit PO QAM 11/03/17 [History Confirmed 11/03/17 Last Taken 11/03 08:00] amLODIPine BESYLATE [Amlodipine Besylate] 5 mg PO QAM 11/03/17 [History Confirmed 11/03/17 Last Taken 11/03/17 08:00] metFORMIN HCL [Glucophage] 500 mg PO BID 11/03/17 [History Confirmed 11/03/17 Last Taken 11/03/17 08:00] Aspirin [Ecotrin] 325 mg PO BID #30 tab.ec 11/06/17 [Rx Last Taken Unknown] HYDROcodone/APAP 5/325MG [Atlas 5-325Mg] 1 tab PO Q4HP PRN #60 tab 11/06/17 [Rx Last Taken Unknown] Medical - DS: Hosp Hospital course: 11/03 The patient is an 82-year-old female history of type 2 diabetes, hypertension, aortic stenosis who presents in transfer from an outside hospital with a femur fracture. The history is obtained in speaking with the patient as well as reviewing old records from the transferring hospital as well as from [facility] in [place], as summarized below. Patient has a history of a left total knee arthroplasty done in 2001. She's also had a previously done right total knee arthroplasty several years prior. She done well postop, not have problems with her left knee. This morning the patient got up and started her day, she was walking with her 4 wheeled walker which she usually uses to ambulate at home. She notices she is having trouble getting her left leg to move correctly and it felt numb. She wondered if she might of had a stroke. However she continued to walk on the M with a walker. She showered, and continued her day. This afternoon, while walking around the edge of the bed as she was manipulating the corner, her left leg went move and then she fell to the floor. She has not recall particularly twisting the limb. She's had no antecedent falls recently. She was unable to move the limb and to get up. Her called EMS and she was taken to [facility] in [place]. There she was found to have a distal left femur fracture above her left total knee implant. She is transferred to this facility for orthopedic consultation. Patient had been feeling well otherwise. She does not have a history of dyspnea on exertion or chest symptoms when ambulating at her usual pace, though she does not walk briskly and does use her walker for stability issues. She does not have claudication symptoms. She has no history of congestive heart failure which she is aware nor history of lung disease. As undergone anesthesia for several surgeries in the past, has not had problems with anesthesia except takes her a long time to have the effects of anesthesia were off. Review of records from [facility] showed that she had presented with a non- STEMI, which time she was found to have severe aortic stenosis (she tells me this was June 2017, initially presenting to [facility] in [place]). She also had a focal lesion in the mid right (later characterized as severe and a cardiology consult note) and moderate bifurcation disease of the LAD. She has been evaluated for transcatheter aortic valve replacement and RCA stenting. In reviewing those records, she is noted to be quite frail, to greater than 6 seconds to complete a 5 m walk and is felt she was more symptomatic than she was on during the interview. The patient recalls the visits to [place] and [facility]. She describes being evaluated for surgery and valve replacement, subsequently having recommendation for having the valve replaced about doing surgery (TAVR) and stenting. She then stated that after much thought she decided it was too much trouble and did not wish to have those procedures done. Review of records from [facility] also showed diagnosis of chronic diastolic heart failure in August 2017 (the patient denied have a problem with "fluid rolling up on the lungs" or having been told she had congestive heart failure). Echocardiogram on 08/21/2017 showed ejection fraction of 55% with severe AAS. She also had mild-moderate mitral regurgitation. 11/04 Patient seen and examined. She initially did not want to sign blood consent last evening. Had long discussion with the patient, her granddaughter is also in the room. She did not want to receive blood due to quaker reasons, though after further discussion of the risks of proceeding to surgery with significant anemia given her right coronary and LAD stenoses, she has consented to receive blood. In discussing with Dr. Almanzar, he estimates one unit of blood has been lost in tissues due to fracture, and one further unit of blood may be lost during surgery. We discussed with the patient nonoperative management which would be 6-8 weeks and knee immobilizer without weightbearing. She does wish to proceed with surgery. Both she and her granddaughter recognize she is at higher risk given her coronary artery disease and aortic stenosis. Did not sleep well last night. No dyspnea. No chest pain. Pain in the leg is controlled. 11/05 Went through surgery yesterday without any problems, now status post ORIF of distal femur fracture. Postoperative troponins were all below the limit of detection on 2 occasions. Currently no chest pain, no dyspnea. Little reluctant to start working with physical therapy, encourage the patient start mobilizing. 11/06 Remains stable overnight, working with PT. Activity is clarified: the patient is to leave the brace on, toe-touch weightbearing. Discharge diagnosis: Left supracondylar femur fracture Secondary discharge diagnosis: Coronary artery disease Severe aortic stenosis Type 2 diabetes mellitus Hypertension - Time Spent with Patient Total time spent providing and/or coordinating discharge services: Greater than 30 minutes Medical - DS: Exam - Constitutional Vitals: Vital Signs Temp Pulse Resp BP Pulse Ox 11/06/17 12:00 98.8 F 75 18 113/60 96 11/06/17 10:00 96 11/06/17 06:48 98.9 F 18 114/62 96 11/06/17 05:55 93 11/06/17 03:13 97.8 F 75 16 111/62 91 11/06/17 02:00 91 11/06/17 00:00 98.6 F 79 14 110/63 92 11/05/17 20:00 97.9 F 85 16 111/61 94 11/05/17 15:58 98.2 F 120/68 11/05/17 15:39 98.6 F 20 133/65 93 11/05/17 14:00 74 96 Intake and Output 11/05/17 11/06/17 11/06/17 21:59 05:59 13:59 Intake Total 1320 / 1320 375 / 375 1040 / 1040 Output Total 1450 / 1450 450 / 450 150 / 150 Balance -130 / -130 -75 / -75 890 / 890 Intake: IV 1000 / 1000 Sodium Chloride 0.9% 1,000 ml @ 1000 / 1000 75 mls/hr IV .[id number] Rx#: [id number] Oral 320 / 320 375 / 375 1040 / 1040 Output: Urine Catheter Amount 1450 / 1450 450 / 450 Void Amount 150 / 150 Other: Meal Dinner Breakfast Percent of Meal Consumed 50% 50% Feeding Ability Independent # Bowel Movements 1 Weight 164 lb Additional comments: General: No acute distress, in good spirits Chest: Few basal rales, improved with deep respirations Cardiovascular: Regular rate and rhythm with 3/6 systolic murmurs unchanged Abdomen: Soft, nontender Musculoskeletal: Left lower extremity in brace, dressings in place Neuro: Alert, oriented 3 Medical - DS: Data Procedures and tests throughout hospitalization: Date of procedure: 11/04/17 Pre-op diagnosis: left femur supracondylar femur fx Post-op diagnosis: same Procedure: left femur supracondylar femur fx ORIF med and lat Grafts/Implants: Yes Anesthesia: GETA Complications: none Surgeon: Sam Lynn Syrup Mixer: Chaparro Malone Labs on day of discharge: Labs from last 24 hours 11/06/17 11/06/17 04:00 04:00 Hgb 9.2 L Hct 27.9 L PT 14.6 H INR 1.1 Medical - DS: A/P - Patient/Caregiver Discharge Instructions Activity: ambulate only with your walker, as per physical therapy (toe touch weight bearing) Diet: Consistent Carbohydrate Prescriptions: Aspirin [Ecotrin] 325 mg PO BID #30 tab.ec HYDROcodone/APAP 5/325MG [Atlas 5-325Mg] 1 tab PO Q4HP PRN #60 tab PRN Reason: Pain Level 3-6 Other Amb Orders: Physical Therapy at Discharge - TKA Location: Determined By Patient Walker Location: Determined By Patient - Problem Maintenance (1) Femur fracture, left Status: Acute Qualifiers: Encounter type: initial encounter Femur location: supracondylar without intracondylar extension Fracture type: closed Fracture alignment: displaced Qualified Code(s): S72.452A - Displaced supracondylar fracture without intracondylar extension of lower end of left femur, initial encounter for closed fracture (2) Severe aortic stenosis Status: Chronic (3) Coronary artery disease Status: Chronic Qualifiers: Coronary Disease-Associated Artery/Lesion type: [place] artery [place] vs. transplanted heart: [place] heart Associated angina: angina presence unspecified Qualified Code(s): I25.10 - Atherosclerotic heart disease of [place] coronary artery without angina pectoris (4) Chronic diastolic (congestive) heart failure Status: Chronic (5) Type 2 diabetes mellitus Status: Chronic Qualifiers: Diabetes mellitus intermodal truck driver insulin use: with intermodal truck driver use Diabetes mellitus complication status: with unspecified complications Qualified Code(s) : E11.8 - Type 2 diabetes mellitus with unspecified complications; Z79.4 - intermediate (current) use of insulin (6) Hypertension Status: Chronic Qualifiers: Hypertension type: essential hypertension Qualified Code(s): I10 - Essential (primary) hypertension - Follow up Plan Disposition: Xf SNF Prognosis: Good Rehab Potential: Good I certify that the patient requires SNF services: Yes Overall status at discharge: patient is not back to baseline Medical - DS: Qual - VTE Deep Vein Thrombosis/Pulmonary Embolism Present on Admission: No
== END 2017-11-06 15:05 | DRG 481 ==
LOC: MEDSUR 21:07
PROVIDERS: ADMIT Internal Medicine; ATTEND Internal Medicine